=== PATIENT | male | born 1945 ===

== ENCOUNTER 2024-05-14 07:18 | Outpatient (RCR) | payer MEDICARE, OTHER, SELFPAY | END 2024-05-25 10:09 | disposition home or self-care (01) | LOC: RPT 07:18 | PROVIDERS: ATTENDING PHYSICIAN Nurse Practitioner Gerontology | DX: R53.81 Other malaise (principal); G93.40 Encephalopathy, unspecified; R26.89 Other abnormalities of gait and mobility; Z73.6 Limitation of activities due to disability; R26.2 Difficulty in walking, not elsewhere classified; Z91.81 History of falling | CPT/HCPCS: 97110; 97162; 97167; 97537 ==